=== PATIENT | female | born 1990 | race Caucasian/White ===

== ENCOUNTER → 2019-04-22 16:50 | Outpatient (CLI) | payer SELFPAY | PROVIDERS: Visit Provider Advanced Practice Midwife | DX: Z12.4 Encounter for screening for malignant neoplasm of cervix (principal); Z11.3 Encounter for screening for infections with a predominantly sexual mode of transmission ==

== ENCOUNTER → 2019-05-16 13:08 | Outpatient (CLI) | payer SELFPAY ==
[2019-05-16 13:49] LABS: Color, Urine Yellow (Yellow); Glucose, Dipstick Normal (Normal); Ketone-Dipstick Negative (Negative); Leukocyte Esterase-Dipstick 500 /ul (Negative); Nitrite-Dipstick Negative (Negative); Occult Blood-Urine Negative /ul (Negative); Protein-Dipstick Negative (Negative); Urine Bilirubin Dipstick Negative (Negative); Urine Clarity Sl. Cloudy (Clear); Urine Urobilinogen 1 mg/dl (Normal)
[2019-05-16 15:31] LABS: Absolute Lymphocyte Count 1.59 X10^3/uL (0.83-4.51); Absolute Neutrophil Count 8.9 X10^3/uL (2.0-7.7); Basophil# 0.04 X10^3/uL; Basophil% 0.3 % (0-1); Eosinophils% 0.8 % (0-5); Hematocrit 36.4 % (37-47); Hemoglobin 12.3 g/dL (12.0-15.0); Lymphocyte # 1.59 X10^3/ul (4.0); Lymphocyte % 13.2 % (19-41); Mean Corp Hgb Conc 33.8 g/dL (32-36); Mean Corpuscular Volume 85.8 fL (81-99); Mean Platelet Vol. 12.1 fl (6.2-12.0); Monocyte# 1.31 X10^3/uL; Monocyte% 10.9 % (0-10); NRBC Flagged by Analyzer 0 % (0-5); Neutrophil # 8.94 X10^3/uL (2.7-7.7); Neutrophil % 74.3 % (47-70); Platelet Count 284 K/mm3 (150-450); RBC Distribution Width CV 12.4 % (11.6-14.6); RBC Distribution Width SD 38.5 fl (35.1-43.9); Red Blood Count 4.24 M/mm3 (4.2-5.4)
[2019-05-16 15:53] LABS: Thyroid Stim Hormone (TSH) 0.06 uIU/mL (0.358-3.74)
[2019-05-17 09:17] LABS: HIV - WCH Non-Reactive (Nonreactive); Hepatitis B Surface Antigen Non-Reactive (Nonreactive); Hepatitis C Antibody Non-Reactive (Nonreactive); Rubella IgG 17.6 IU/mL
[2019-05-23 03:15] LABS: Prenatal RPR NONREACTIVE (NONREACTIVE)
== END ==
PROVIDERS: Referring Provider Obstetrics & Gynecology; Visit Provider Obstetrics & Gynecology
DX: Z34.81 Encounter for supervision of other normal pregnancy, first trimester (principal)
CPT/HCPCS: 36415; 81002; 84443; 85025; 86703; 86762; 86803; 87340

== ENCOUNTER → 2019-11-20 | Outpatient (CLI) | payer SELFPAY | END | disposition home or self-care (01) | LOC: LABSPEC 14:44 | PROVIDERS: Visit Provider Obstetrics & Gynecology | DX: Z36.85 Encounter for antenatal screening for Streptococcus B (principal) | CPT/HCPCS: 87081 ==

== ENCOUNTER 2019-12-08 23:20 | Inpatient (IN) | payer SELFPAY, OTHER ==
[2019-12-08 23:01] VITALS: BMI 30.2
[2019-12-08 23:07] VITALS: BP 137/75; PULSE 80
[2019-12-08 23:09] VITALS: PULSE 73; TEMP 37; O2SAT 96
[2019-12-09] VITALS (41 sets, daily range): BP systolic 116–147; BP diastolic 55–95; PULSE 74–208; RESP 16–18; TEMP 36.2–37.1; O2SAT 82–98
[2019-12-09 00:12] LABS: Absolute Neutrophil Count 12.5 X10^3/uL (2.0-7.7); Basophil# 0.08 X10^3/uL; Basophil% 0.5 % (0-1); Eosinophil# 0.16 X10^3/uL; Hematocrit 37.8 % (37-47); Hemoglobin 12.6 g/dL (12.0-15.0); Lymphocyte % 12.1 % (19-41); Mean Corp Hgb Conc 33.3 g/dL (32-36); Mean Platelet Vol. 11.1 fl (6.2-12.0); Monocyte# 1.46 X10^3/uL; Monocyte% 8.8 % (0-10); NRBC Flagged by Analyzer 0 % (0-5); Neutrophil # 12.49 X10^3/uL (2.7-7.7); Neutrophil % 75.2 % (47-70); Platelet Count 236 K/mm3 (150-450); RBC Distribution Width CV 14.8 % (11.6-14.6); RBC Distribution Width SD 48.4 fl (35.1-43.9); White Blood Count 16.6 K/mm3 (4.4-11.0)
--- NOTE | 2019-12-09 01:05 | HP.PCM_ITS ---
- Problem List (1) 38 weeks gestation of Status: Acute (2) Spontaneous rupture of amniotic membranes Status: Acute History Date of Admission: 12/08/19 Final SEBLE: 12/17/19 Final SEBLE Source: US <20 weeks Gestational age: 38 Weeks and 6 Days History of this : This is a 29 year-old, G [1], P [0], at 38 weeks gestational age. Allergies promethazine [From Phenergan] Adverse Reaction (Verified 12/09/19 01:42) Inflammation of vein Home Medications: Home Medications Caplet 1 tab PO DAILY 12/08/19 Smoking Status: Never smoker Alcohol: None Number of Fetus(es): 1 NST - FHR Rate Baby A Baseline: 130 Variability:: Moderate Accelerations:: 15 x 15 Decelerations:: None NST Reactive:: Yes FHR Category:: Category I Uterine Activity:: 1.5-4m History Past Pregnancies: Past Pregnancies: none Labs: Mom's Problem List Problem Status Onset Code 38 weeks gestation of Acute [id number].38 Spontaneous rupture of amniotic membranes Acute Mom's Labs & Results 12/08/19 12/08/19 12/09/19 23:55 23:55 04:40 WBC 16.6 H RBC 4.20 Hgb 12.6 Hct 37.8 MCV 90.0 MCH 30.0 MCHC 33.3 RDW Std Deviation 48.4 H RDW Coeff of Gaby 14.8 H Plt Count 236 MPV 11.1 Immature Gran % (Auto) 2.400 H Neut % (Auto) 75.2 H Lymph % (Auto) 12.1 L [place] % (Auto) 8.8 Eos % (Auto) 1.0 Baso % (Auto) 0.5 Absolute Neuts (auto) 12.5 H Absolute Lymphs (auto) 2.00 Nucleated RBC % 0 Chlam trachomat DNA PCR Pending N.gonorrhoeae DNA (PCR) Pending Blood Type A POSITIVE Antibody Screen NEGATIVE Course Did the patient receive Yes care? Labs Blood Type: A RH: POSITIVE RPR/VDRL/Syphilis Nonreactive Rubella status Immune HbSAg Negative Date Done: 05/16/19 HIV/AIDS Non-Reactive Group B Strep: Negative Current Obstetrical History Gestational Diabetes No Incompetent Cervix No Infertility No IUGR No Macrosomia No Hypertension/Pre-eclampsia No Placenta Previa/Abruption No PTL/PROM No Uterine anomaly No Oligohydramnios No Polyhydramnios No Multiple gestation No Past Medical History Asthma No Diabetes No Hypertension No Heart disease No Mitral valve prolapse No Neurologic/Seizure disorder/ No Migraines Kidney disease No Liver disease No Varicosities No Clotting disorders/Hx of DVT No Thyroid Dysfunction No Other medical diseases No Psychiatric disorders No Major trauma No Abnormal PAP smear No Sleep apnea No Mammogram in the last 2 years No Social History Marital Status: Alleged father Corey Hx Smoking No Smoking Status Never smoker How long have you used n/a substances (years)? Expected Infant Delivery Method: Spontaneous Vaginal Number of Visits: 11 Review of Systems Constitutional: Denies: Chills, Fever, Weight Change HEENT: Denies: Head Aches, Sinus Congestion, Sinus Drainage Cardiovascular: Denies: Chest Pain, Palpitations Respiratory: Denies: Cough, Shortness of breath at rest, Sputum production Gastrointestinal: Denies: Abdominal Pain, Nausea, Vomiting Genitourinary: Denies: Dysuria Musculoskeletal: Denies: Joint Pain, Joint Tenderness Skin: Denies: Rash, Wounds Neurological: Denies: Numbness, Tingling, Focal weakness Psychiatric: Denies: Anxiety, Depression, Homicidal Ideations, Suicidal Ideations Hematologic/ Lymphatic: Denies: Easy Bruising, Easy Bleeding Physical Exam Vitals: Vital Signs Temp Pulse BP Pulse Ox 97.6 F L 84 132/82 H 96 12/09/19 04:27 12/09/19 05:08 12/09/19 04:27 12/09/19 05:08 General: Alert, Oriented x3, No apparent distress HEENT: Atraumatic, Normocephalic. Negative for: Thyromegaly, Lymphadenopathy Cardiovascular: Regular rate, Regular Rhythm Lungs: Clear to auscultation Abdomen: Bowel Sounds Present, Gravid Neurological: Deep Tendon Reflexes 2+/4 and Symmetrical, Neuro grossly intact [employer]: Normal external genitalia. Negative for: Vulvar lesions Estimated gestational size: Appropriate for gestational size Presentation: Cephalic Cervix Dilation (cm): 3.5 Station: -2 Effacement (%): 70 Assessment/Plan All Active Problems 38 weeks gestation of (Acute) Spontaneous rupture of amniotic membranes (Acute) A/P: This is a 29 year-old, G [1], P [0], at 38 weeks gestational age. SROM at 2200, clear fluid SVE 3.5/70/-2 UC Q1.5-4m Plans unmedicated delivery Admit for active labor Expect
[2019-12-09 06:30] LABS: Chlamydia Trachomatis by PCR Negative (Negative); Neisserai gonorrhoeae by PCR Negative (Negative); Probe Check PASS; Sample Adequacy Control PASS; Specimen Processing Control PASS
--- NOTE | 2019-12-09 06:34 | PN.OBGYN_ITS ---
Patient Problems: Active and Suspected Problems 38 weeks gestation of (Acute) Spontaneous rupture of amniotic membranes (Acute) Subjective: Only feeling contractions every 3-4 minutes, mild with pain a 3/10. Objective: VSS. SVE 4.5/70/-2. FHR baseline 135, +accels, -decels, moderate variability. UC irritability seen, will get IUPC - Physical Exam Vitals/I&O's: Vital Signs Temp Pulse BP Pulse Ox 97.6 F L 86 123/75 H 96 12/09/19 05:59 12/09/19 06:00 12/09/19 05:59 12/09/19 06:00 Weight: 95.708 kg Body Mass Index (BMI) 30.2 Intake and Output for Last 24 Hours 12/07/19 12/08/19 12/09/19 23:59 23:59 23:59 Intake Total 500 / 500 Balance 500 / 500 General: Alert, Oriented x3, Cooperative HEENT: Atraumatic, PERRLA, EOMI, Normocephalic Neck: Supple, No JVD, Negative Carotid Bruits Lungs: Clear to auscultation, Normal air movement Cardiovascular: Regular rate, No murmurs Abdomen: Bowel Sounds Present, Soft, Non Tender Extremities: No edema, Capillary Refill Less than 3 Seconds Skin: No rashes, No breakdown Musculoskeletal: No Tenderness to Palpation of Joints or Extremities Neurological: Cranial nerves II-XII grossly intact Psych/Mental Status: Normal Affect, Appropriate Laboratory Results 12/08/19 23:55: WBC 16.6 H, RBC 4.20, Hgb 12.6, Hct 37.8, MCV 90.0, MCH 30.0, MCHC 33.3, RDW Std Deviation 48.4 H, RDW Coeff of Gaby 14.8 H, Plt Count 236, MPV 11.1, Immature Gran % (Auto) 2.400 H, Neut % (Auto) 75.2 H, Lymph % (Auto) 12.1 L, [place] % (Auto) 8.8, Eos % (Auto) 1.0, Baso % (Auto) 0.5, Absolute Neuts (auto) 12.5 H, Absolute Lymphs (auto) 2.00, Nucleated RBC % 0 12/08/19 23:55: Blood Type A POSITIVE, Antibody Screen NEGATIVE 12/09/19 04:40: Chlam trachomat DNA PCR Negative, N.gonorrhoeae DNA (PCR) Negative Current Medications Acetaminophen (Tylenol) 325 - 650 mg PO Q4H PRN PRN PRN Reason: Pain Score 1-3/10 Al Hydroxide/Mg Hydroxide (Mylanta Ii) 15 - 30 ml PO Q4H PRN PRN PRN Reason: INDIGESTION Citric Acid/Sodium Citrate (Bicitra) 30 ml PO X1 PRN PRN Reason: Section Fentanyl Citrate (Sublimaze (100mcg Ampule)) 25 - 50 mcg IV Q2H PRN PRN PRN Reason: Pain Score 4-10/10 Lactated Ringer's () 500 mls @ 999 mls/hr IV .Q31M PRN PRN Reason: Epidural Lactated Ringer's () 500 mls @ 999 mls/hr IV .Q31M PRN PRN Reason: Corrective Measures Lactated Ringer's () 1,000 mls @ 50 mls/hr IV .Q20H ESPERANZA Last Admin: 12/09/19 01:40 Dose: Not Given Documented by: Ondansetron HCl (Zofran) 4 mg IV Q4H PRN PRN PRN Reason: NAUSEA Prochlorperazine Edisylate (Compazine Iv) 10 mg IV Q6H PRN PRN PRN Reason: NAUSEA Sodium Chloride () 10 - 40 ml IV X1 PRN PRN Reason: SALINE FLUSH Medical Necessity - Tobacco Use Smoking Status: Never smoker Assessment/Plan All Active Problems 38 weeks gestation of (Acute) Spontaneous rupture of amniotic membranes (Acute) A/P: SVE 4.5/70/-2 UC irritability seen, palpating Q3-5m, will get IUPC in To start Pitocin if needed Still wishing for an unmedicated delivery Expect
--- NOTE | 2019-12-09 08:52 | PN.OBGYN_ITS ---
<Elva Jaquez - Last Filed: 12/09/19 08:52> Patient Problems: Active and Suspected Problems 38 weeks gestation of (Acute) Spontaneous rupture of amniotic membranes (Acute) Subjective: Contractions are a 6/10, but able to still tolerate them. Wants to continue to go unmedicated with no interventions. Objective: VSS. SVE /-2. UC Q2-4m. FHR 145 baseline, +accels, -decels, moderate variability. - Physical Exam Vitals/I&O's: Vital Signs Temp Pulse BP Pulse Ox 98.3 F 80 147/82 H 96 12/09/19 08:06 12/09/19 08:06 12/09/19 08:06 12/09/19 08:06 Weight: 95.708 kg Body Mass Index (BMI) 30.2 Intake and Output for Last 24 Hours 12/07/19 12/08/19 12/09/19 23:59 23:59 23:59 Intake Total 950 / 950 Balance 950 / 950 General: Alert, Oriented x3, Cooperative HEENT: Atraumatic, PERRLA, EOMI, Normocephalic Neck: Supple, No JVD, Negative Carotid Bruits Lungs: Clear to auscultation, Normal air movement Cardiovascular: Regular rate, No murmurs Abdomen: Bowel Sounds Present, Soft, Non Tender Extremities: No edema, Capillary Refill Less than 3 Seconds Skin: No rashes, No breakdown Musculoskeletal: No Tenderness to Palpation of Joints or Extremities Neurological: Cranial nerves II-XII grossly intact Psych/Mental Status: Normal Affect, Appropriate Laboratory Results 12/08/19 23:55: WBC 16.6 H, RBC 4.20, Hgb 12.6, Hct 37.8, MCV 90.0, MCH 30.0, MCHC 33.3, RDW Std Deviation 48.4 H, RDW Coeff of Gaby 14.8 H, Plt Count 236, MPV 11.1, Immature Gran % (Auto) 2.400 H, Neut % (Auto) 75.2 H, Lymph % (Auto) 12.1 L, [place] % (Auto) 8.8, Eos % (Auto) 1.0, Baso % (Auto) 0.5, Absolute Neuts (auto) 12.5 H, Absolute Lymphs (auto) 2.00, Nucleated RBC % 0 12/08/19 23:55: Blood Type A POSITIVE, Antibody Screen NEGATIVE 12/09/19 04:40: Chlam trachomat DNA PCR Negative, N.gonorrhoeae DNA (PCR) Negative Current Medications Acetaminophen (Tylenol) 325 - 650 mg PO Q4H PRN PRN PRN Reason: Pain Score 1-3/10 Al Hydroxide/Mg Hydroxide (Mylanta Ii) 15 - 30 ml PO Q4H PRN PRN PRN Reason: INDIGESTION Citric Acid/Sodium Citrate (Bicitra) 30 ml PO X1 PRN PRN Reason: Section Fentanyl Citrate (Sublimaze (100mcg Ampule)) 25 - 50 mcg IV Q2H PRN PRN PRN Reason: Pain Score 4-10/10 Lactated Ringer's () 500 mls @ 999 mls/hr IV .Q31M PRN PRN Reason: Epidural Lactated Ringer's () 500 mls @ 999 mls/hr IV .Q31M PRN PRN Reason: Corrective Measures Lactated Ringer's () 1,000 mls @ 50 mls/hr IV .Q20H [facility] Last Admin: 12/09/19 01:40 Dose: Not Given Documented by: Ondansetron HCl (Zofran) 4 mg IV Q4H PRN PRN PRN Reason: NAUSEA Prochlorperazine Edisylate (Compazine Iv) 10 mg IV Q6H PRN PRN PRN Reason: NAUSEA Sodium Chloride () 10 - 40 ml IV X1 PRN PRN Reason: SALINE FLUSH Medical Necessity - Tobacco Use Smoking Status: Never smoker Assessment/Plan All Active Problems 38 weeks gestation of (Acute) Spontaneous rupture of amniotic membranes (Acute) A/P: SVE /-2 UC irregular with IUPC in Wishes to stay unmedicated and no interventions Will allow to continue labor without Pitocin as she is now making cervical change Expect <Mandi Packer - Last Filed: 12/09/19 16:15> - Physical Exam Vitals/I&O's: Vital Signs Temp Pulse BP Pulse Ox 97.2 F L 100 121/67 H 82 12/09/19 13:36 12/09/19 16:01 12/09/19 16:01 12/09/19 14:03 Weight: 95.708 kg Body Mass Index (BMI) 30.2 Intake and Output for Last 24 Hours 12/07/19 12/08/19 12/09/19 23:59 23:59 23:59 Intake Total 1050 / 1050 Output Total 500 / 500 Balance 550 / 550 Laboratory Results 12/08/19 23:55: WBC 16.6 H, RBC 4.20, Hgb 12.6, Hct 37.8, MCV 90.0, MCH 30.0, MCHC 33.3, RDW Std Deviation 48.4 H, RDW Coeff of Gaby 14.8 H, Plt Count 236, MPV 11.1, Immature Gran % (Auto) 2.400 H, Neut % (Auto) 75.2 H, Lymph % (Auto) 12.1 L, [place] % (Auto) 8.8, Eos % (Auto) 1.0, Baso % (Auto) 0.5, Absolute Neuts (auto) 12.5 H, Absolute Lymphs (auto) 2.00, Nucleated RBC % 0 12/08/19 23:55: Blood Type A POSITIVE, Antibody Screen NEGATIVE 12/09/19 04:40: Chlam trachomat DNA PCR Negative, N.gonorrhoeae DNA (PCR) Negative Current Medications Acetaminophen (Tylenol) 1,000 mg PO Q8H PRN PRN PRN Reason: Pain Score 1-3/10 Dibucaine (Dibucaine) 1 applic TOPICAL TID PRN PRN; Protocol PRN Reason: Discomfort Hydrocortisone (Hytone) 1 applic TOPICAL TID PRN PRN; Protocol PRN Reason: Discomfort Cefazolin Sodium 2 gm/ Sodium (Chloride) 110 mls @ 150 mls/hr IV Q6 ESPERANZA Stop: 12/10/19 00:43 Ibuprofen (Motrin) 600 mg PO Q6H PRN PRN PRN Reason: Pain Score 1-3/10 Methylergonovine Maleate (Methergine) 0.2 mg IM X1 PRN PRN Reason: Excess bleeding/uterine atony Ondansetron HCl (Zofran) 4 mg IV Q4H PRN PRN PRN Reason: Nausea Oxycodone HCl (Oxyir) 5 - 10 mg PO Q4H PRN PRN PRN Reason: Pain Score 4-10/10 Polyethylene Glycol (Miralax) 17 gm PO DAILY ESPERANZA Senna/Docusate Sodium (Senokot-S, Carmen-Colace) 1 - 2 tablet PO DAILY PRN PRN PRN Reason: Constipation Simethicone (Mylicon) 80 mg PO PCHS PRN PRN Reason: Indigestion/Stomach pain Sodium Chloride () 5 - 15 ml IV UD PRN PRN Reason: SALINE FLUSH Throat Lozenges (Dermoplast (Sp)) 1 applic TOPICAL 4X/DAY PRN PRN; Protocol PRN Reason: Pain/Inflammation Assessment/Plan Agreed with plan as above.
[2019-12-09] MEDS: 0.9% Saline Lock 10 ML Syringe IV ×3 (09:31→18:32)
[2019-12-09] MEDS: Lactated Ringers 1,000 ML 200 ML IV (09:33)
[2019-12-09] MEDS: Oxytocin 30 units/NS 500 ml 30 UNITS/500 ML IV.SOLN 334 UNITS IV (14:25)
--- NOTE | 2019-12-09 14:45 | DCINST_ITS ---
<Elva Jaquez - Last Filed: 12/09/19 14:45> Additional Instructions: If you experience any of the following, contact your healthcare provider. * Bleeding that soaks a pad every hour for 2 hours * Fever 100.4 or higher * Unrelieved incision or abdominal pain * Swelling, redness, discharge or bleeding from your incision or ep isiotomy site * Your incision begins to separate * Problems urinating (including inability to urinate or burning while urinating). * Visual changes * Severe headache * Flu-like symptoms * Pain or redness in one of both of your breasts * Pain, warmth, tenderness or swelling in your legs, especially the calf area * Frequent nausea and vomiting * Symptoms of depression or anxiety If you experience any of the following, call 911 or go to the nearest Emergency Room. * Chest pain * Problems breathing * Seizure activity * Partial or complete paralysis of a body part, slurred speech, weakness or drooping of the face, or a sudden inability to walk or hold your balance Allergies/Adverse Reactions: Allergies promethazine [From Phenergan] Adverse Reaction (Verified 12/09/19 01:42) Inflammation of vein Medications to take at Discharge Caplet 1 tab PO DAILY 12/08/19 Acetaminophen [Tylenol] 650 mg PO Q6H PRN PRN tab 12/10/19 Ibuprofen [Motrin] 600 mg PO Q6H PRN PRN tab 12/10/19 Oxycodone [Oxyir] 5 mg PO Q6H PRN PRN 7 Days #12 tab 12/10/19 Polyethylene Glycol 3350 [Miralax] 17 gm PO DAILY 30 Days #120 packet 12/10/19 Senna/Docusate Sodium [Senokot-S] 1 tab PO BID 30 Days #60 tab 12/10/19 The following prescriptions were given: Polyethylene Glycol 3350 [Miralax] 17 gm PO DAILY 30 Days #120 packet Oxycodone [Oxyir] 5 mg PO Q6H PRN PRN 7 Days #12 tab PRN Reason: Pain Score 6-10/10 Senna/Docusate Sodium [Senokot-S] 1 tab PO BID 30 Days #60 tab Primary Care Physician: Care Physician,No Primary [Primary Care Provider] - Test Results: Test results from this visit will be discussed in further detail at your follow- up appointment, if applicable. <Mandi Packer - Last Filed: 12/10/19 07:45> Call your doctor if your incision/area has: Increased Pain/ Swelling, Increased Redness, Foul Smelling Discharge, Swelling at the incision site Call your doctor if you observe: Fever of 101 or Higher, Inability to urinate, Inability to have a bowel movement Additional Instructions: If you experience any of the following, contact your healthcare provider. * Bleeding that soaks a pad every hour for 2 hours * Fever 100.4 or higher * Unrelieved incision or abdominal pain * Swelling, redness, discharge or bleeding from your incision or episiotomy site * Your incision begins to separate * Problems urinating (including inability to urinate or burning while urinating). * Visual changes * Severe headache * Flu-like symptoms * Pain or redness in one of both of your breasts * Pain, warmth, tenderness or swelling in your legs, especially the calf area * Frequent nausea and vomiting * Symptoms of depression or anxiety If you experience any of the following, call 911 or go to the nearest Emergency Room. * Chest pain * Problems breathing * Seizure activity * Partial or complete paralysis of a body part, slurred speech, weakness or drooping of the face, or a sudden inability to walk or hold your balance Please Follow Up With: Mandi Packer DO When: 2 weeks in office for perineal check Test Results: Test results from this visit will be discussed in further detail at your follow- up appointment, if applicable.
--- NOTE | 2019-12-09 14:45 | PCM.OPRPT ---
Problem List (1) 38 weeks gestation of Status: Acute (2) Spontaneous rupture of amniotic membranes Status: Acute Vaginal Delivery Maternal Presentation: Active Labor Amniotic Membrane Rupture Type: Spontaneous at home Amniotic Fluid Description: Clear Final SEBLE: 12/17/19 Final SEBLE Source: US <20 weeks Gestational age: 38 Weeks and 6 Days Date of Procedure: 12/09/19 Pre-Operative Diagnosis: Labor Post-Operative Diagnosis: Surgery/ Procedure Performed: Spontaneous Vaginal Delivery Type of Anesthesia: Local with 1% lidocaine Description of Procedure: Patient was FD at +3 station with spontaneous urge to push. She pushed to deliver head in OA to TEQUILA followed spontaneously by body. Loose body nuchal x 1 reduced after delivery. The female was placed on the maternal abdomen and further attended to by nursery personnel. The cord was doubly clamped and cut by MD under CNM supervision at approximately 5 minutes of life. With gentle traction the placenta delivered. IV Pitocin started per protocol. On inspection placenta appears to have a three vessel cord. Fourth degree perineal/vaginal floor laceration repaired by attending Dr. Packer under 1% local anesthetic. Apgars 8/9. EBL 700. Sponge and needle counts correct x 2. Precipitous delivery. Attending MD: Dr. Bobby Packer Presentation: Vertex, TEQUILA Placental Delivery Description: Spontaneous Placenta Disposition: [facility] Cord Vessel Description: 3 Vessels Cord Entanglement: - - around body x 1 Estimated Blood Loss: 700 Infant A gender: Female (1 minute): 8 (5 minute): 9 Episiotomy Description: None Laceration: 4th Degree Medications given after delivery: IV Pitocin
[2019-12-09] MEDS: Cefazolin 2 GM in 0.9% Normal Saline 100 ML IV ×2 (17:42→23:33)
[2019-12-09] MEDS: Ibuprofen 600 MG Tablet PO ×2 (17:56→23:40)
[2019-12-09] MEDS: Senna/Docusate Sodium 1 Tablet PO (17:57)
--- NOTE | 2019-12-09 19:22 | PCM.OPRPT ---
Report of Operation Date of Procedure: 12/09/19 Pre-Operative Diagnosis: Morales intrauterine Post-Operative Diagnosis: Morales intrauterine . Fourth degree perineal laceration. Surgery/Procedure Performed:: Elva Jaquez performing delivery. Mandi Packer performing perineal laceration repair Description of Surgical Findings:: Fourth degree perineal laceration noted on exam with laceration through rectal mucosa. Type of Anesthesia:: Local - 1% lidocaine Estimated Blood Loss (mL): 700cc tota Vaginal Delivery Maternal Presentation: Active Labor, Spontaneous Rupture of Membranes Amniotic Membrane Rupture Type: Spontaneous at home Gestational age: 38 weeks and 6 days Date of Procedure: 12/09/19 Pre-Operative Diagnosis: Morales intrauterine Post-Operative Diagnosis: Morales intrauterine , fourth degree perineal laceration Surgery/ Procedure Performed: Spontaneous Vaginal Delivery Type of Anesthesia: Local with 1% lidocaine Presentation: Vertex Placental Delivery Description: Spontaneous Cord Vessel Description: 3 Vessels Nuchal Cord Compression: Without compression Cord Entanglement: Around neck x 1, loose Estimated Blood Loss: 700cc A gender: Female (1 minute): 8 (5 minute): 9 Laceration: 4th Degree - Fourth degree perineal laceration noted on exam, laceration through rectal mucosa. Laceration repaired in usual fashion. Rectal mucosa reapproximated. Spinchter muscles reapproximated with end to end interrupted sutures. Remaining mucosa repaired in usual fashion. Rectal exam at the end of the repair was completed, noting closure of the mucosa, no defect in repair.
[2019-12-10 03:00] VITALS: BP 110/55; PULSE 82; RESP 17; TEMP 36.1
[2019-12-10] MEDS: 0.9% Saline Lock 10 ML Syringe IV ×2 (05:53→08:08)
[2019-12-10] MEDS: Ibuprofen 600 MG Tablet PO ×3 (05:53→20:51)
--- NOTE | 2019-12-10 07:06 | PCM.PN.OB ---
<Elva Jaquez - Last Filed: 12/10/19 08:24> Patient Problems: Active and Suspected Problems 38 weeks gestation of (Acute) Spontaneous rupture of amniotic membranes (Acute) Subjective: Vaginal/rectal pain a 0/10 when laying still and a 2/10 when moving. Denies heavy bleeding. Reports already having a BM this AM. well and would like to discharge today. Objective: VSS. Fundus is firm, midline, u/2. Vaginal edema +1. Lochia rubra light to moderate. - Physical Exam Vitals/I&O's: Vital Signs Temp Pulse Resp BP Pulse Ox 97.0 F L 82 17 110/55 L 97 12/10/19 03:00 12/10/19 03:00 12/10/19 03:00 12/10/19 03:00 12/09/19 19:40 Oxygen Delivery Method Room Air Weight: 95.708 kg Body Mass Index (BMI) 30.2 Intake and Output for Last 24 Hours 12/08/19 12/09/19 12/10/19 23:59 23:59 23:59 Intake Total 3083.33 / 3083.33 110 / 110 Output Total 1000 / 1000 Balance 2083.33 / 2083.33 110 / 110 General: Alert, Oriented x3, Cooperative HEENT: Atraumatic, PERRLA, EOMI, Normocephalic Neck: Supple, No JVD, Negative Carotid Bruits Lungs: Clear to auscultation, Normal air movement Cardiovascular: Regular rate, No murmurs Abdomen: Bowel Sounds Present, Soft, Non Tender Extremities: No edema, Capillary Refill Less than 3 Seconds Skin: No rashes, No breakdown, Incision - 4th degree repair, well approximated Musculoskeletal: No Tenderness to Palpation of Joints or Extremities Neurological: Cranial nerves II-XII grossly intact Psych/Mental Status: Normal Affect, Appropriate Current Medications Acetaminophen (Tylenol) 1,000 mg PO Q8H PRN PRN PRN Reason: Pain Score 1-3/10 Metronidazole (Flagyl) 500 mg in 100 mls @ 100 mls/hr IV X1 ONE Stop: 12/10/19 08:59 Ibuprofen (Motrin) 600 mg PO Q6H PRN PRN PRN Reason: Pain Score 1-3/10 Last Admin: 12/10/19 05:53 Dose: 600 mg Documented by: Methylergonovine Maleate (Methergine) 0.2 mg IM X1 PRN PRN Reason: Excess bleeding/uterine atony Ondansetron HCl (Zofran) 4 mg IV Q4H PRN PRN PRN Reason: Nausea Oxycodone HCl (Oxyir) 5 - 10 mg PO Q4H PRN PRN PRN Reason: Pain Score 4-10/10 Polyethylene Glycol (Miralax) 17 gm PO DAILY [facility] Senna/Docusate Sodium (Senokot-S, Carmen-Colace) 1 tablet PO BID [facility] Simethicone (Mylicon) 80 mg PO PCHS PRN PRN Reason: Indigestion/Stomach pain Sodium Chloride () 5 - 15 ml IV UD PRN PRN Reason: SALINE FLUSH Last Admin: 12/10/19 05:53 Dose: 10 ml Documented by: Throat Lozenges (Dermoplast (Sp)) 1 applic TOPICAL 4X/DAY PRN PRN; Protocol PRN Reason: Pain/Inflammation Medical Necessity - Tobacco Use Smoking Status: Never smoker Assessment/Plan All Active Problems 38 weeks gestation of (Acute) Spontaneous rupture of amniotic membranes (Acute) A/P: S/P day #1 Delivery complicated with a 4th degree vaginal laceration Denies pain or heavy bleeding Reports +flatus and +bm this AM Normal involution and lochia mother Dyad stable Would like to discharge today after antibiotics are finished <Mandi Packer - Last Filed: 12/10/19 13:46> - Physical Exam Vitals/I&O's: Vital Signs Temp Pulse Resp BP Pulse Ox 97.2 F L 72 16 105/64 97 12/10/19 07:55 12/10/19 07:55 12/10/19 07:55 12/10/19 07:55 12/09/19 19:40 Oxygen Delivery Method Room Air Weight: 95.708 kg Body Mass Index (BMI) 30.2 Intake and Output for Last 24 Hours 12/08/19 12/09/19 12/10/19 23:59 23:59 23:59 Intake Total 3083.33 / 3083.33 210 / 210 Output Total 1000 / 1000 Balance 2083.33 / 2083.33 210 / 210 Laboratory Results 12/10/19 07:35: WBC 21.1 H, RBC 3.33 L, Hgb 9.9 L, Hct 29.9 L, MCV 89.8, MCH 29.7, MCHC 33.1, RDW Std Deviation 48.4 H, RDW Coeff of Gaby 14.9 H, Plt Count 229, MPV 11.0, Immature Gran % (Auto) 1.900 H, Neut % (Auto) 76.3 H, Lymph % (Auto) 11.1 L, Dundy % (Auto) 9.8, Eos % (Auto) 0.5, Baso % (Auto) 0.4, Absolute Neuts (auto) 16.1 H, Absolute Lymphs (auto) 2.34, Nucleated RBC % 0, Diff Path Review May foll Current Medications Acetaminophen (Tylenol) 1,000 mg PO Q8H PRN PRN PRN Reason: Pain Score 1-3/10 Ibuprofen (Motrin) 600 mg PO Q6H PRN PRN PRN Reason: Pain Score 1-3/10 Last Admin: 12/10/19 12:13 Dose: 600 mg Documented by: Methylergonovine Maleate (Methergine) 0.2 mg IM X1 PRN PRN Reason: Excess bleeding/uterine atony Ondansetron HCl (Zofran) 4 mg IV Q4H PRN PRN PRN Reason: Nausea Oxycodone HCl (Oxyir) 5 - 10 mg PO Q4H PRN PRN PRN Reason: Pain Score 4-10/10 Polyethylene Glycol (Miralax) 17 gm PO DAILY [facility] Last Admin: 12/10/19 10:41 Dose: 17 gm Documented by: Senna/Docusate Sodium (Senokot-S, Carmen-Colace) 1 tablet PO BID [facility] Last Admin: 12/10/19 11:44 Dose: Not Given Documented by: Simethicone (Mylicon) 80 mg PO PCHS PRN PRN Reason: Indigestion/Stomach pain Sodium Chloride () 5 - 15 ml IV UD PRN PRN Reason: SALINE FLUSH Last Admin: 12/10/19 08:08 Dose: 10 ml Documented by: Throat Lozenges (Dermoplast (Sp)) 1 applic TOPICAL 4X/DAY PRN PRN; Protocol PRN Reason: Pain/Inflammation Assessment/Plan Patient seen and examined this morning. Feeling well, pain controlled with motrin. Given ancef x2 and flagyl x1. Acute blood loss anemia secondary to delivery, pt to iron supplement at home. Leukocytosis secondary to delivery as well. PT to follow up in 2w in office with physician for perineal check.
[2019-12-10 07:47] LABS: Absolute Lymphocyte Count 2.34 X10^3/uL (0.83-4.51); Absolute Neutrophil Count 16.1 X10^3/uL (2.0-7.7); Basophil# 0.08 X10^3/uL; Basophil% 0.4 % (0-1); Eosinophils% 0.5 % (0-5); Hematocrit 29.9 % (37-47); Hemoglobin 9.9 g/dL (12.0-15.0); Lymphocyte # 2.34 X10^3/ul (4.0); Lymphocyte % 11.1 % (19-41); Mean Corp Hgb Conc 33.1 g/dL (32-36); Mean Corpuscular Hgb 29.7 pg (27.0-32.0); Mean Corpuscular Volume 89.8 fL (81-99); Monocyte# 2.07 X10^3/uL; Monocyte% 9.8 % (0-10); NRBC Flagged by Analyzer 0 % (0-5); Neutrophil # 16.07 X10^3/uL (2.7-7.7); Neutrophil % 76.3 % (47-70); POSITIVE DIFFERENTIAL YES; Platelet Count 229 K/mm3 (150-450); RBC Distribution Width CV 14.9 % (11.6-14.6); RBC Distribution Width SD 48.4 fl (35.1-43.9); Red Blood Count 3.33 M/mm3 (4.2-5.4); White Blood Count 21.1 K/mm3 (4.4-11.0)
[2019-12-10 07:50] LABS: Differential Indicated SCAN CRITERIA MET
[2019-12-10 07:55] VITALS: BP 105/64; PULSE 72; RESP 16; TEMP 36.2
[2019-12-10] MEDS: metroNIDAZOLE 500 MG/100 ML BAG 100 MG IV (08:08)
[2019-12-10] MEDS: Polyethylene Glycol 3350 17 GM PACKET PO (10:41)
[2019-12-10] MEDS: Senna/Docusate Sodium 1 Tablet PO (10:41)
[2019-12-10 14:35] VITALS: BP 102/69; PULSE 78; RESP 16; TEMP 36.3
[2019-12-10 20:50] VITALS: BP 113/71; PULSE 82; RESP 17; TEMP 36.5
[2019-12-11 02:40] VITALS: BP 111/63; PULSE 75; RESP 17; TEMP 37
--- NOTE | 2019-12-11 07:31 | PCM.PN.OB ---
Patient Problems: Active and Suspected Problems 38 weeks gestation of (Acute) Spontaneous rupture of amniotic membranes (Acute) Subjective: Objective: Pt doing well overnight, pain well controlled. - Physical Exam Vitals/I&O's: Vital Signs Temp Pulse Resp BP Pulse Ox 98.6 F 75 17 111/63 97 12/11/19 02:40 12/11/19 02:40 12/11/19 02:40 12/11/19 02:40 12/09/19 19:40 Oxygen Delivery Method Room Air Weight: 211 lb Body Mass Index (BMI) 30.2 Intake and Output for Last 24 Hours 12/09/19 12/10/19 12/11/19 23:59 23:59 23:59 Intake Total 3083.33 / 3083.33 210 / 210 Output Total 1000 / 1000 Balance 2082.33 / 2082.33 General: Alert, Oriented x3, No apparent distress HEENT: Atraumatic, PERRLA, Normocephalic Oral: Moist Mucosa Neck: Supple Abdomen: Bowel Sounds Present, Soft, Non Tender, Non-Distended, Gravid Skin: No rashes, No breakdown Psych/Mental Status: Normal Affect, Appropriate, Alert and oriented to time, place, person, mood and affect Laboratory Results 12/10/19 07:35: WBC 21.1 H, RBC 3.33 L, Hgb 9.9 L, Hct 29.9 L, MCV 89.8, MCH 29.7, MCHC 33.1, RDW Std Deviation 48.4 H, RDW Coeff of Gaby 14.9 H, Plt Count 229, MPV 11.0, Immature Gran % (Auto) 1.900 H, Neut % (Auto) 76.3 H, Lymph % (Auto) 11.1 L, Nye % (Auto) 9.8, Eos % (Auto) 0.5, Baso % (Auto) 0.4, Absolute Neuts (auto) 16.1 H, Absolute Lymphs (auto) 2.34, Nucleated RBC % 0, Diff Path Review May foll Current Medications Acetaminophen (Tylenol) 1,000 mg PO Q8H PRN PRN PRN Reason: Pain Score 1-3/10 Ibuprofen (Motrin) 600 mg PO Q6H PRN PRN PRN Reason: Pain Score 1-3/10 Last Admin: 12/10/19 20:51 Dose: 600 mg Documented by: Methylergonovine Maleate (Methergine) 0.2 mg IM X1 PRN PRN Reason: Excess bleeding/uterine atony Ondansetron HCl (Zofran) 4 mg IV Q4H PRN PRN PRN Reason: Nausea Oxycodone HCl (Oxyir) 5 - 10 mg PO Q4H PRN PRN PRN Reason: Pain Score 4-10/10 Polyethylene Glycol (Miralax) 17 gm PO DAILY [facility] Last Admin: 12/10/19 10:41 Dose: 17 gm Documented by: Senna/Docusate Sodium (Senokot-S, Carmen-Colace) 1 tablet PO BID [facility] Last Admin: 12/10/19 21:57 Dose: Not Given Documented by: Simethicone (Mylicon) 80 mg PO PCHS PRN PRN Reason: Indigestion/Stomach pain Sodium Chloride () 5 - 15 ml IV UD PRN PRN Reason: SALINE FLUSH Last Admin: 12/10/19 08:08 Dose: 10 ml Documented by: Throat Lozenges (Dermoplast (Sp)) 1 applic TOPICAL 4X/DAY PRN PRN; Protocol PRN Reason: Pain/Inflammation Medical Necessity - Tobacco Use Smoking Status: Never smoker Assessment/Plan All Active Problems 38 weeks gestation of (Acute) Spontaneous rupture of amniotic membranes (Acute) PPD#2 s/p with 4th degree laceration, doing well. Pain well controlled. Okay to d/c home
[2019-12-11 08:42] VITALS: BP 131/77; PULSE 95; RESP 14; TEMP 36.4
[2019-12-11 12:46] LABS: Pathologist Review Reviewed
== END 2019-12-11 10:35 | disposition home or self-care (01) | DRG 768 ==
LOC: WPOUT 23:25 → WP 23:25
PROVIDERS: Admitting Provider Obstetrics & Gynecology; Referring Provider Obstetrics & Gynecology; Visit Provider Obstetrics & Gynecology
DX: O42.02 Full-term premature rupture of membranes, onset of labor within 24 hours of rupture (principal); Z37.0 Single live birth; O70.3 Fourth degree perineal laceration during delivery; D62 Acute posthemorrhagic anemia; O99.13 Other diseases of the blood and blood-forming organs and certain disorders involving the immune mechanism complicating the puerperium; D72.829 Elevated white blood cell count, unspecified; O62.3 Precipitate labor; O69.81X0 Labor and delivery complicated by cord around neck, without compression, not applicable or unspecified; O90.81 Anemia of the puerperium; Z3A.38 38 weeks gestation of pregnancy
CPT/HCPCS: 59025; 59050; 85025; 86850; 86900; 86901; 87491; 87591; 99218; J7120; A4216; G0378

== ENCOUNTER → 2021-02-09 | Outpatient (CLI) | payer OTHER, SELFPAY ==
--- NOTE | 2021-02-09 | FLU_PTH ---
PATIENT: ONEYDA HARDY LOC: [facility] U#:[id number] AGE/SX: 30/F ROOM: RE02/09/[address]: YUKO See : 1990 BED: DIS: 02/09/2021 SPEC #: [id number] RECD: 02/10/21 09:58 STATUS: FRANDY REQ #: [id number] FREDDY: 02/09/21 00:[address]: Patel Rosales DEPT: CYTOLOGY RECD BY: Laura Norton ENTERED: 02/10/21 10:59 SP TYPE: Fluid OTHR DR: Trang Primary Care Phys YUKO See Tissues: A - Thyroid gland, NOS B - Thyroid gland, NOS Procedures: Special Stain Group II Surgery Specimen Level IV Cytospin Fluid Cytology Other Comments: @ Ordering doctor for SSII edited from MADHAVI to DR.DPEABO Vu by COTY at 02/10/21 1438 @ Ordering doctor for SUIV edited from MADHAVI to DR.DPEABO Vu by COTY at 02/10/21 1438 @ Ordering doctor for CYSPIN edited from MADHAVI to DR.DPEABO Vu by COTY at 02/10/21 1438 @ Ordering doctor for CYOTHER edited from MADHAVI to DR.DPEABO Vu by COTY at 02/10/21 1438 @ Submitting doctor edited from MADHAVI to DR.DPEABO Horace ANSARI at 02/10/21 1438 HEADER OPERATION: Ultrasound-guided fine needle aspiration of right thyroid PRE-OP DIAGNOSIS: Multinodular goiter TISSUE SUBMITTED: A ? FNA right thyroid fluid, B - FNA right thyroid x12 slides DIAGNOSIS CYTOLOGY A. Right thyroid nodule fluid, ultrasound-guided FNA (cytospin and cell block): Consistent with benign follicular/colloid nodule with cystic changes. B. Right thyroid nodule, ultrasound-guided FNA (smears): Consistent with benign follicular/colloid nodule with cystic changes. Adequate for evaluation. See comment. SJ:simon 02/11/2021 COMMENT Correlation with clinical, radiologic findings and appropriate follow up are necessary. CYTOLOGY STUDY Slides are reviewed. CYTOLOGY GROSS A - Received is 30 ml of light amezquita cloudy fluid labeled with the patient's name and and designated per the requisition as right thyroid. Submitted for cytology preparation including cell block. B - Received are 12 smears labeled with the patient's name and designated per the requisition as right thyroid. Submitted for staining. / simon 02/10/2021 TC:5 CPT: 55760, 45274, 59268
== END | disposition home or self-care (01) ==
LOC: LABSPEC 02-10 10:05
PROVIDERS: Referring Provider Nurse Practitioner Family; Visit Provider Nurse Practitioner Family
DX: E04.2 Nontoxic multinodular goiter (principal)
CPT/HCPCS: 88108; 88161; 88305; 88313

== ENCOUNTER → 2021-02-17 | Outpatient (CLI) | payer OTHER, SELFPAY ==
[2021-02-23 00:06] LABS: Chlamydia By Nucleic Acid AMP Negative (Negative)
[2021-02-23 12:08] LABS: Gonococcus By Nucleic Acid AMP Negative (Negative)
== END | disposition home or self-care (01) ==
PROVIDERS: Visit Provider Obstetrics & Gynecology
DX: Z11.3 Encounter for screening for infections with a predominantly sexual mode of transmission (principal)
CPT/HCPCS: 87491; 87591

== ENCOUNTER → 2021-03-24 14:30 | Outpatient (CLI) | payer OTHER, SELFPAY ==
[2021-03-24 15:07] LABS: Absolute Lymphocyte Count 1.96 X10^3/uL (0.83-4.51); Absolute Neutrophil Count 11.5 X10^3/uL (2.0-7.7); Basophil# 0.07 X10^3/uL; Basophil% 0.5 % (0-1); Eosinophil# 0.23 X10^3/uL; Eosinophils% 1.5 % (0-5); Hematocrit 38.1 % (37-47); Hemoglobin 12.9 g/dL (12.0-15.0); Lymphocyte # 1.96 X10^3/ul (0.83-4.51); Lymphocyte % 12.9 % (19-41); Mean Corp Hgb Conc 33.9 g/dL (32-36); Mean Corpuscular Hgb 28.5 pg (27.0-32.0); Mean Corpuscular Volume 84.3 fL (81-99); Mean Platelet Vol. 10.8 fl (6.2-12.0); Monocyte# 1.31 X10^3/uL; Monocyte% 8.6 % (0-10); NRBC Flagged by Analyzer 0 % (0-5); Neutrophil # 11.49 X10^3/uL (2.7-7.7); Neutrophil % 75.4 % (47-70); Platelet Count 298 K/mm3 (150-450); RBC Distribution Width CV 14.1 % (11.6-14.6); RBC Distribution Width SD 43.2 fl (35.1-43.9); Red Blood Count 4.52 M/mm3 (4.2-5.4); White Blood Count 15.2 K/mm3 (4.4-11.0)
[2021-03-24 15:20] LABS: Color, Urine Yellow (Yellow); Glucose, Dipstick Normal (Normal); Ketone-Dipstick 5 mg/dl (Negative); Leukocyte Esterase-Dipstick 25 /ul (Negative); Nitrite-Dipstick Negative (Negative); Occult Blood-Urine Negative /ul (Negative); Protein-Dipstick 15 mg/dl (Negative); Urine Bilirubin Dipstick Negative (Negative); Urine Clarity Cloudy (Clear); Urine Urobilinogen 1 mg/dl (Normal)
[2021-03-24 15:39] LABS: Thyroid Stim Hormone (TSH) 0.57 uIU/mL (0.358-3.74)
[2021-03-25 09:03] LABS: HIV - WCH Non-Reactive (Nonreactive); Hepatitis B Surface Antigen Non-Reactive (Nonreactive); Hepatitis C Antibody Non-Reactive (Nonreactive); Rubella IgG Reactive (Nonreactive); Syphilis Antibodies Non-reactive
== END ==
PROVIDERS: Visit Provider Obstetrics & Gynecology
DX: Z34.81 Encounter for supervision of other normal pregnancy, first trimester (principal)
CPT/HCPCS: 36415; 81002; 84443; 85025; 86703; 86762; 86780; 86803; 87077; 87086; 87088; 87340

== ENCOUNTER 2021-06-22 11:17 | Outpatient (CLI) | payer SELFPAY ==
[2021-06-22 13:32] LABS: Hematocrit 33.8 % (37-47); Hemoglobin 11.1 g/dL (12.0-15.0); Mean Corp Hgb Conc 32.8 g/dL (32-36); Mean Corpuscular Hgb 27.5 pg (27.0-32.0); Mean Corpuscular Volume 83.7 fL (81-99); Mean Platelet Vol. 10.5 fl (6.2-12.0); Platelet Count 278 K/mm3 (150-450); RBC Distribution Width SD 42.6 fl (35.1-43.9); Red Blood Count 4.04 M/mm3 (4.2-5.4); White Blood Count 15.4 K/mm3 (4.4-11.0)
[2021-06-22 13:39] LABS: Glucose Challenge Gest 1H 50g 92 mg/dL (70-140)
== END 2021-06-22 23:59 | disposition home or self-care (01) ==
PROVIDERS: Visit Provider Obstetrics & Gynecology
DX: Z34.83 Encounter for supervision of other normal pregnancy, third trimester (principal)
CPT/HCPCS: 36415; 82950; 85027

== ENCOUNTER → 2021-08-18 | Outpatient (CLI) | payer SELFPAY | END | disposition home or self-care (01) | LOC: LABSPEC 10:50 | PROVIDERS: Visit Provider Obstetrics & Gynecology | DX: Z36.85 Encounter for antenatal screening for Streptococcus B (principal) | CPT/HCPCS: 87081 ==

== ENCOUNTER 2021-09-10 08:20 | Inpatient (IN) | payer SELFPAY, OTHER ==
[2021-09-10] VITALS (28 sets, daily range): BP systolic 109–135; BP diastolic 55–91; PULSE 86–134; RESP 16–18; TEMP 36.2–36.8; O2SAT 92–100; BMI 35.4
[2021-09-10] MEDS: Lactated Ringers 1,000 ML 50 ML IV (08:45)
[2021-09-10 09:06] LABS: Absolute Lymphocyte Count 1.89 X10^3/uL (0.83-4.51); Basophil# 0.06 X10^3/uL; Basophil% 0.4 % (0-1); Eosinophil# 0.11 X10^3/uL; Eosinophils% 0.8 % (0-5); Hematocrit 33.7 % (37-47); Hemoglobin 10.5 g/dL (12.0-15.0); Lymphocyte # 1.89 X10^3/ul (0.83-4.51); Mean Corp Hgb Conc 31.2 g/dL (32-36); Mean Corpuscular Hgb 23.6 pg (27.0-32.0); Mean Corpuscular Volume 75.9 fL (81-99); Mean Platelet Vol. 10.1 fl (6.2-12.0); Monocyte# 1.22 X10^3/uL; NRBC Flagged by Analyzer 0 % (0-5); Neutrophil # 9.96 X10^3/uL (2.7-7.7); Neutrophil % 73.7 % (47-70); Platelet Count 233 K/mm3 (150-450); RBC Distribution Width CV 17.1 % (11.6-14.6); RBC Distribution Width SD 45.4 fl (35.1-43.9); Red Blood Count 4.44 M/mm3 (4.2-5.4); White Blood Count 13.5 K/mm3 (4.4-11.0)
[2021-09-10] MEDS: Oxytocin 30 units/NS 500 ml 30 UNITS/500 ML IV.SOLN 999 UNITS IV (11:49)
[2021-09-10] MEDS: Methylergonovine 0.2 MG/ML Ampul IM (11:52)
--- NOTE | 2021-09-10 12:08 | HP.PCM_ITS ---
History and Physical Date of Admission: 09/10/21 OG ANTEPARTUM RECORD - HISTORY AND PHYSICAL (09/10/2021) Name: LARISA HARDY History of this : This is a 30 year old [id number] presents at 39 wks + 6 days gestation in active labor. OB Physician: Dirk Alvarado MD 's Physician: PED MANAGED CARE PROVIDER ...................................................................... : 1990 Age: 30 Address: [address] [place] [address] Phone: (h) [phone] Insurance Carrier: Emergency Contact: DWIGHT - [phone] ...................................................................... Final SEBLE: 09/11/21 By Ultrasound: 10 weeks 4 days PARITY: (G-Total Pregnancies P-Fullterm,Premature,Induced AB,Spont AB, Ectopics, Multiple,Living) SEBLE CONFIRMATION: By LMP: 12/13/20 Initial Exam: 09/19/21 By First Ultrasound Exam: 09/11/21 Final SEBLE: 09/11/21 OB PROBLEM LIST: 80 lb weight gain with her first ALLERGIC TO PROMETHAZINE! 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 Job Description - Illicit Drug Use - denies use of street drugs Sexual Activity - Residence - lives with Place of - [place] Spouse-Sig Other Name - Ocrey Spouse-Sig Other Occupation - hot tar roofer helper/equestrian trainer Spouse-Sig Other Phone No - [phone] Children Name(s) - Margarita (12/09/19) PRIOR DELIVERY HISTORY DEL DATE GEST LAB WT LB WT OZ TYPE ANES LABOR TX Dec 11 [phone] Vag Local No ANTEPARTUM FLOW CHART VISIT GE RTC FU F F NH U U DATE WK MD WKS HT PN HR M SS BP ED WT NH GL D EF ST __ ____ ___ __ __ ___ __ __ __ ___ __ __ __ ___ __ August JMW 1 38 V + + 134/76 1+ 249 tr - 4+ 75 -1 August JMW 1 38 + + 134/84 sl 244 1+ - 04 August JMW 1 37 + + 136/72 0 241 tr - S Jul JMW 1 36 V + + 138/80 sl 240 tr - ft 75 PH Jun JMW 3 33 + + 136/74 sl 232 - - Jul 21 SHM 2 30 + + 136/78 sl 227 - - Jul 19 SHM 2 29 + + 114/74 sl 223 tr - 15 Jun 19 JMW 2 26 + + 140/70 0 218 tr ne May 13 JMW 4 20 B + + 124/78 0 197 tr ne Apr 07 JMW 4 15 + 132/72 0 174 1+ ne ANTEPARTUM NOTE(S): Sep 09 2021: Good FM Sep 02 2021: no concerns, Good FM Aug 25 2021: Good FM Aug 18 2021: GBS Today,LARC form signed, Good FM Jul 22 2021: Good FM Jul 09 2021: Jun 22 2021: continued muffled hearing, congestion Jun 08 2021: Good FM, no PIH sxs, BP ok on left Apr 28 2021: Comp U/S today, nausea continues. Mar 24 2021: N/V continues in AM., Declines AFP COMPREHENSIVE ANTEPARTUM NOTE(S): Sep 02 2021: Larisa is here for a pnv at 38/5. Good FM. Sl edema present in b/l ankles. Denies ctx's, back pain, and pelvic pressure. Declines cervix check at this time. MK Aug 25 2021: Larisa is 37w4d here for PNV good FM no edema. Would like cervical check. BR Aug 24 2021: H taken to OB. tkg Jul 22 2021: Larisa is 32w5d here for PNV good FM slight edema at night. Would like to know what she can do to help with energy levels. BR Jul 09 2021: Larisa is 30w6d here for PNV good FM she states slight edema in face and hands otherwise doing well. BR Jun 22 2021: Larisa is here for a pnv at 28/3. Good FM. Sl edema present in face and hands. Continues to have muffled hearing, would like to discuss this further. Pt sounds very congested. Occasional n/v if patient overdo's herself. No other concerns expressed. 1 hr GTT drawn, pt is A positive. MK Jun 22 2021: c/o hand and facial edema, muffled hearing this . Denies congestion, eye pressure, sore throat, cough. She notes throat feels raw after vomiting some times however, continues with morning emesis and some heart burn this . Denies prior head trauma or concussion. Difficulty sleeping, but snores often when sleeps both inside and outside of . BP wnl. +thyromegaly on exam, t Jun 08 2021: Larisa states that she just recently started taking vitamins d/t nausea. Did not get any sleep last night just started last night. Also states that she is having difficulty with hearing bilaterally that started over the weekend along with a numb feeling in jaw/mouth. Is having movement but unsure if it is the right amount. Recheck BP 118/68 left arm, large cuff Mar 24 2021: Larisa is here for her NOB visit following a PNV with Dr. Alvarado. She is a 30 year old with an SEBLE of 09/11/2021, current GA is 15 w 4 d. 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 Her daughter was born at [facility] by . Past history updated. Larisa plans to deliver at [facility], she does not want an epidural, or vac assisted delivery, and Feb 17 2021: ok Feb 17 2021: Larisa here for a missed menses. 30 year old female. . Pt had a pap with PCP 11/2020 was her cervix was irregular. LMP 12/13/20. Pt is also having bad nausea. Medications and allergy are up to date. CB REVIEW OF SYSTEMS: GENERAL - Denies fever, or chills SKIN - Denies rash, new skin lesions, or change in moles EYES - Denies blurred vision, or change in visual acuity EARS - Denies ear pain, or difficulty hearing NOSE - Denies nasal congestion, discharge, or bleeding MOUTH - Denies sore throat, or difficulty swallowing NECK - Denies pain or swelling RESPIRATORY - Denies shortness of breath, cough, wheezing CARDIOVASCULAR - Denies palpitations, chest pain, orthopnea, PND, peripheral edema, syncope or claudication GASTROINTESTINAL - Denies nausea, vomiting, diarrhea, constipation, Denies abdominal pain, melena and or bright red blood GENITOURINARY - Denies dysuria, frequency of urination, urgency, or hesitancy MUSCULOSKELETAL - Denies joint or muscle pain, or back pain NEUROLOGICAL - Denies localized numbness, weakness, or tingling PSYCHIATRIC - Denies depression, anxiety, substance abuse or suicide attempts ENDOCRINE - Denies heat or cold intolerance, weight loss or gain, increasing thirst HEMATO-IMMUNOLOGIC - Denies easy bruising, bleeding, oral ulcerations or recurrent infections GENETICS SCREENING: Age 35+ years: No Thalassemia: No Neural Tube Defect: Yes cousin Down Syndrome: No TORRIE-SACHS: No Sickle Cell Disease: No Hemophilia: Yes Musc. Dystrophy: No Cystic Fibrosis: No-declines screening Pierson Chorea: No Mental Retardation: No Fragile X: No Other genetic: Yes Other defects: Yes SABs/still births: No Drugs since LMP: No Comments: FOB's Aunt with mental and physical dissabilities- unknown origin INFECTION HISTORY: High risk AIDS: No High risk Hepatitis: No Exposed to TB: No Exposed to Herpes: No Rash/viral illness since LMP: No History of STD: No MENSTRUAL HISTORY: *Menses Amount/Duration: 5 daysMenses Regularity: RegularFrequency: monthly* PAST SUMMARY: PARITY: 1. Total Pregnancies............ 2 2. Full Term Pregnancies........ 1 3. Premature.................... 0 4. Abortions - Induced.......... 0 5. Abortions - Spontaneous...... 0 6. Ectopics..................... 0 7. Multiple Births.............. 0 8. Living Children.............. 1 PAST #1: Date of :.................. 12/09/19 Gestation Weeks:................ 39 Length of labor(hours):......... 14 Sex:............................ F Weight-lbs:............... 9 Weight-oz:................ 0 Type of Delivery:............... Vag Type of Anesthesia:............. Local Place of Delivery:.............. [place] Treatment of Labor?:.... No Comment: SROM, 4TH DEGREE PHYSICAL EXAMINATION General Appearence: 30 yo female in no acute distress Vital Signs: AF, VSS Heart: RRR without rubs or gallops Lungs: CTA x 2 Breasts: deferred Abdomen: gravid Pelvis: Cervix: Presentation: cephalic Station: Fetus: Size: AGA Movement: present Heart: present LAB TEST(S) ORDERED SINCE:12/15/20 03/28/2021 URINE CULTURE 03/25/2021 RUBELLA IGG 03/25/2021 L509.8000 03/25/2021 HIV - [facility] 03/25/2021 HEPATITIS C ANTIBODY 03/25/2021 HEPATITIS B SURFACE ANTIGEN 03/24/2021 URINALYSIS, ROUTINE (DIPSTICK) 03/24/2021 THYROID STIM HORMONE (TSH) 03/24/2021 T AND S-NO CHARGE W/PNP 03/24/2021 CBC W/DIFF, AUTOMATED 02/23/2021 CHLAMYDIA/GC [place] APTIMA 09/10/2021 TYPE AND SCREEN 09/10/2021 COVID 19 AG RAPID (RN COLLECT) 09/10/2021 CBC W/DIFF, AUTOMATED 08/21/2021 RULE OUT BETA STREP (GRP. B) 06/22/2021 GLUCOSE CHALLENGE GEST 1H 50G 06/22/2021 CBC-COMPLETE BLOOD CNT NO DIFF == ==== Order Observation Description Value Ref_Range A* Site == ==== COVID 19 AG RAP NOTE [facility] Labor [facility]~[address] [place], [address]~ TYPE AND SCRE AB SCREEN GEL NEGATIVE ML CBC W/DIFF, AUT NOTE [facility] CBC W/DIFF, AUT WBC 13.5 K/mm3 4.4-11.0 H ML CBC W/DIFF, AUT RBC 4.44 M/mm3 4.2-5.4 ML CBC W/DIFF, AUT HGB 10.5 g/dL 12.0-15.0 L ML CBC W/DIFF, AUT HCT 33.7 37-47 L ML CBC W/DIFF, AUT MCV 75.9 fL 81-99 L ML CBC W/DIFF, AUT MCH 23.6 pg 27.0-32.0 L ML CBC W/DIFF, AUT MCHC 31.2 g/dL 32-36 L ML CBC W/DIFF, AUT RDW CV 17.1 11.6-14.6 H ML CBC W/DIFF, AUT RDW SD 45.4 fl 35.1-43.9 H ML CBC W/DIFF, AUT PLT 233 K/mm3 150-450 ML CBC W/DIFF, AUT MPV 10.1 fl 6.2-12.0 ML CBC W/DIFF, AUT NEUT% 73.7 47-70 H ML CBC W/DIFF, AUT LY% 14.0 19-41 L ML CBC W/DIFF, AUT MONO% 9.0 0-10 ML CBC W/DIFF, AUT EO% 0.8 0-5 ML CBC W/DIFF, AUT BASO% 0.4 0-1 ML CBC W/DIFF, AUT IG% 2.100 0.0-0.9 H ML IG% - Immature Granulocytes (promyelocytes, myelocytes and metamyelocytes) > 1% indicates that a LEFT SHIFT is Present. CBC W/DIFF, AUT ABSOLUTE NEUT 10.0 X10 3/uL 2.0-7.7 H ML CBC W/DIFF, AUT ABSOLUTE LYMPH 1.89 X10 3/uL 0.83-4.51 ML CBC W/DIFF, AUT NUCLEATED RBC 0 0-5 ML RULE OUT BETA S NOTE [facility] GLUCOSE CHALLEN NOTE [facility] GLUCOSE CHALLEN GLU GEST 50G 1H 92 mg/dL 70-140 ML CBC-COMPLETE BL NOTE [facility] CBC-COMPLETE BL WBC 15.4 K/mm3 4.4-11.0 H ML CBC-COMPLETE BL RBC 4.04 M/mm3 4.2-5.4 L ML CBC-COMPLETE BL HGB 11.1 g/dL 12.0-15.0 L ML CBC-COMPLETE BL HCT 33.8 37-47 L ML CBC-COMPLETE BL MCV 83.7 fL 81-99 ML CBC-COMPLETE BL MCH 27.5 pg 27.0-32.0 ML CBC-COMPLETE BL MCHC 32.8 g/dL 32-36 ML CBC-COMPLETE BL RDW CV 14.0 11.6-14.6 ML CBC-COMPLETE BL RDW SD 42.6 fl 35.1-43.9 ML CBC-COMPLETE BL PLT 278 K/mm3 150-450 ML CBC-COMPLETE BL MPV 10.5 fl 6.2-12.0 ML URINE CULTURE NOTE [facility] HEPATITIS C ANT NOTE [facility] HEPATITIS C ANT HEPATITIS C AB Non-Reactive Nonreactive ML Non Reactive: < 0.8 Equivocal: >/= 0.8 to < 1.0 Reactive: >/= 1.0 The CDC recommends that a reactive/equivocal HCV antibody result be followed up by the HCV Nucleic Acid Amplification test ([id number]) HEPATITIS B CORAL NOTE [facility] HEPATITIS B CORAL HEP B SURF AG Non-Reactive Nonreactive ML HIV - [facility] NOTE [facility] HIV - [facility] HIV Non-Reactive Nonreactive ML L509.8000 NOTE KELLEY L509.8000 SYPHILIS ABS Non-reactive ML RUBELLA IGG NOTE [facility] RUBELLA IGG RUBELLA IGG Reactive Nonreactive ML Antibody Results Interpretation of Immune Status Non Reactive Presumed Non-Immune Equivocal Equivocal Reactive Presumed Immune PN N [facility]~[address] [place], [address]~ T AND AB SCREEN GEL NEGATIVE ML THYROID STIM HO NOTE [facility] THYROID STIM HO TSH 0.57 uIU/mL 0.358-3.74 ML URINALYSIS, ROU NOTE [facility] URINALYSIS, ROU COLOR Yellow Yellow ML URINALYSIS, ROU URINE CLARITY Cloudy Clear ML URINALYSIS, ROU GLUCOSE, UR Normal mg/dl Normal ML URINALYSIS, ROU BILIRUBIN URINE Negative mg/dL Negative ML URINALYSIS, ROU KETONE UR 5 mg/dl Negative A ML URINALYSIS, ROU SP.GR. DIPSTX 1.030 1.002-1.030 ML URINALYSIS, ROU PH UR 5.0 5.0 - 8.0 ML URINALYSIS, ROU PROT DIPSTX 15 mg/dl Negative A ML URINALYSIS, ROU UROBILI 1 mg/dl Normal A ML URINALYSIS, ROU NITRITE Negative Negative ML URINALYSIS, ROU OCCULT BLOOD-UR Negative /ul Negative ML URINALYSIS, ROU LEUK ESTERASE 25 /ul Negative A ML CBC W/DIFF, AUT NOTE [facility] CBC W/DIFF, AUT WBC 15.2 K/mm3 4.4-11.0 H ML CBC W/DIFF, AUT RBC 4.52 M/mm3 4.2-5.4 ML CBC W/DIFF, AUT HGB 12.9 g/dL 12.0-15.0 ML CBC W/DIFF, AUT HCT 38.1 37-47 ML CBC W/DIFF, AUT MCV 84.3 fL 81-99 ML CBC W/DIFF, AUT MCH 28.5 pg 27.0-32.0 ML CBC W/DIFF, AUT MCHC 33.9 g/dL 32-36 ML CBC W/DIFF, AUT RDW CV 14.1 11.6-14.6 ML CBC W/DIFF, AUT RDW SD 43.2 fl 35.1-43.9 ML CBC W/DIFF, AUT PLT 298 K/mm3 150-450 ML CBC W/DIFF, AUT MPV 10.8 fl 6.2-12.0 ML CBC W/DIFF, AUT NEUT% 75.4 47-70 H ML CBC W/DIFF, AUT LY% 12.9 19-41 L ML CBC W/DIFF, AUT MONO% 8.6 0-10 ML CBC W/DIFF, AUT EO% 1.5 0-5 ML CBC W/DIFF, AUT BASO% 0.5 0-1 ML CBC W/DIFF, AUT IG% 1.100 0.0-0.9 H ML IG% - Immature Granulocytes (promyelocytes, myelocytes and metamyelocytes) > 1% indicates that a LEFT SHIFT is Present. CBC W/DIFF, AUT ABSOLUTE NEUT 11.5 X10 3/uL 2.0-7.7 H ML CBC W/DIFF, AUT ABSOLUTE LYMPH 1.96 X10 3/uL 0.83-4.51 ML CBC W/DIFF, AUT NUCLEATED RBC 0 0-5 ML CHLAMYDIA/GC NA NOTE [facility] CHLAMYDIA/GC NA CHLAMY,NUC ACID Negative Negative [facility]CI CHLAMYDIA/GC NA GC BY NUC ACID Negative Negative LCI Performed at: =[facility] [id number] Pulp Grinder Feeder: Joslyn Saba MD, Phone: [phone] *Negative results from patients with symptom onset beyond five days should be treated as presumptive and confirmed by a molecular assay if clinically necessary. Negative results should not be used as the sole basis for treatment or for patient management. SARS-CoV-2 Ag Resp Ql IA.rapid *Positive results do not differentiate between SARS-CoV and SARS-CoV-2. If differentiation of the specific SARS virus is desired an additional sample and an additional order is required. SARS-CoV-2 Ag Resp Ql IA.rapid * This test has not been FDA cleared or approved; the test has been authorized by FDA under an Emergency Use Authorization (EAU) for use by laboratories certified under CLIA that meet the requirements to perform moderate, high, or waived complexity tests. SARS-CoV-2 Ag Resp Ql IA.rapid Normal Reference Range: Negative SARS-CoV-2 (COVID 19) Negative RAPID METHOD Quidel Rebecca Analyzer KASSANDRA A POSITIVE Group B Beta Streptococcus is not isolated. #1 @IF STERILE BODY SITE REPORT THIS TOP COMMENT Susceptibility not normally performed on this organism. Bacteria identified Bacteria identified Actinomyces odontolyticus Roy Count 25,000-50,000 Presumptive C albicans Roy Count <1000 A POSITIVE == ==== Impression /Plan: 39 wks + 6 days intrauterine in active labor. Preparations in progress for delivery.
--- NOTE | 2021-09-10 12:08 | EX.PCM.OBRPT ---
Maternal Data Information [place] Doctor Who Attended Delivery: BlaireDouglas Vaginal Delivery Maternal Presentation Maternal Presentation: Active Labor Operative Information Date of Procedure: 09/10/21 Pre-Operative Diagnosis: IUP Post-Operative Diagnosis: IUP Surgery / Procedure Performed: Spontaneous Vaginal Delivery Type of Anesthesia: None Estimated Blood Loss: 400cc Fluids Replaced: crystalloid Findings Description of Procedure: Spontaneous vaginal delivery of a viable female with Apgars of 8/9 from an occiput anterior presentation with moderately stained meconium amniotic fluid and normal meconium stained three-vessel placenta. No episiotomy. First-degree midline laceration repaired with 3-0 repeat suture. Sponges okay. Delivery physician: Dirk Alvarado MD. Presentation: Vertex Amniotic Membrane Rupture Type: Spontaneous Amniotic Fluid Description: Moderate meconium Placental Delivery Description: Spontaneous Placenta Disposition: [facility] Cord Vessel Description: 3 Vessels Cord Entanglement: None A Gender: Female (1 minute): 8 (5 minute): 9
--- NOTE | 2021-09-10 15:12 | NURSING ---
Report received from Lesa DESAI, taking over pt and care at this time.
[2021-09-11] VITALS (14 sets, daily range): BP systolic 123–150; BP diastolic 61–78; PULSE 83–123; RESP 14–18; TEMP 36.1–36.6; O2SAT 97–100
--- NOTE | 2021-09-11 08:11 | PCM.PN.OB ---
Subjective Subjective Patient without complaints. Breast-feeding going well. Wants to stay until tomorrow. Objective Data Objective Data Vital Signs: Vital Signs Temp Pulse Resp BP Pulse Ox 97.9 F 86 14 123/61 H 97 09/11/21 04:33 09/11/21 04:33 09/11/21 04:33 09/11/21 04:33 09/10/21 21:30 Oxygen Delivery Method Room Air Weight: 247 lb 2.211 oz Body Mass Index (BMI) 35.4 Intake & Output: Intake and Output for Last 24 Hours 09/09/21 09/10/21 09/11/21 23:59 23:59 23:59 Intake Total 653.33 / 653.33 Output Total 1700 / 1700 Balance -1046.67 / -1046.67 Lab / Micro Data Result Diagrams: 09/10/21 08:45 Labs: Laboratory Results - last 24 hr 09/10/21 08:45: WBC 13.5 H, RBC 4.44, Hgb 10.5 L, Hct 33.7 L, MCV 75.9 L, MCH 23.6 L, MCHC 31.2 L, RDW Std Deviation 45.4 H, RDW Coeff of Gaby 17.1 H, Plt Count 233, MPV 10.1, Immature Gran % (Auto) 2.100 H, Neut % (Auto) 73.7 H, Lymph % (Auto) 14.0 L, Mobile % (Auto) 9.0, Eos % (Auto) 0.8, Baso % (Auto) 0.4, Absolute Neuts (auto) 10.0 H, Absolute Lymphs (auto) 1.89, Nucleated RBC % 0 09/10/21 08:45: Blood Type A POSITIVE, Antibody Screen NEGATIVE Micro: Microbiology 09/10/21 10:15 Nasal Secretion SARS-CoV-2 Antigen (Rapid) - Final Assessment & Plan (1) Spontaneous vaginal delivery: PLAN: Doing well day #1 status post routine spontaneous vaginal delivery. Continuing present care.
[2021-09-11] MEDS: Senna/Docusate Sodium 1 Tablet PO (15:38)
[2021-09-12 02:42] VITALS: BP 122/58; BP 122/68; PULSE 88; RESP 18
[2021-09-12] MEDS: Acetaminophen 500 MG Tablet 1000 MG PO ×2 (02:47→09:50)
[2021-09-12 08:00] VITALS: BP 141/64; PULSE 91; RESP 16; TEMP 36.5; O2SAT 97
[2021-09-12 08:33] VITALS: BP 141/64; PULSE 84; O2SAT 97
--- NOTE | 2021-09-12 18:12 | PCM.PN.OB ---
Subjective Subjective Pt without complaints. going well. Wants to go home today. Objective Data Objective Data Vital Signs: Vital Signs Temp Pulse Resp BP Pulse Ox 97.7 F L 84 16 141/64 H 97 09/12/21 08:00 09/12/21 08:33 09/12/21 08:00 09/12/21 08:33 09/12/21 08:33 Oxygen Delivery Method Room Air Weight: 247 lb 2.211 oz Body Mass Index (BMI) 35.4 Intake & Output: Intake and Output for Last 24 Hours 09/10/21 09/11/21 09/12/21 23:59 23:59 23:59 Intake Total 653.33 / 653.33 200 / 200 Output Total 1700 / 1700 Balance -1046.67 / -1046.67 200 / 200 Lab / Micro Data Result Diagrams: 09/10/21 08:45 Micro: Microbiology 09/10/21 10:15 Nasal Secretion SARS-CoV-2 Antigen (Rapid) - Final Assessment & Plan (1) Spontaneous vaginal delivery: PLAN: Doing well PPD no 2. Will discharge to home with routine instructions.
--- NOTE | 2021-09-12 18:14 | DCINST_ITS ---
Discharge Instructions Activity May resume sexual activity in: 4-6 weeks Additional Activity Instructions:: Nothing in the vagina for 4-6 weeks. You may return to work/school in 6 weeks. Follow Up Care Please Follow Up With: Dirk Alvarado MD When: Call [phone] to make an appointment with your doctor in 6weeks. If you had elevated blood pressure or 4th degree laceration, you will need to be seen in 2 weeks. Test Results: Test results from this visit will be discussed in further detail at your follow-up appointment, if applicable. Discharge Plan Admission Admit Date/Time: 09/10/21 08:20 Primary Reason for Your Visit: Vaginal Delivery Attending Provider: Dirk Alvarado Primary Care Provider: Callie Juan Instructions Patient Instructions: After a Vaginal Discharge Orders/Prescriptions Prescriptions: No Action 1 tab PO/SL DAILY RF: 0 Referrals / Follow Up: Callie Juan, [employer] [Primary Care Provider] - Disposition Disposition (needs filled in before D/C Order can be placed): Home, Self Care
== END 2021-09-12 11:00 | disposition home or self-care (01) | DRG 807 ==
PROVIDERS: Admitting Provider Obstetrics & Gynecology; PCP Nurse Practitioner Family; Visit Provider Obstetrics & Gynecology
DX: O42.92 Full-term premature rupture of membranes, unspecified as to length of time between rupture and onset of labor (principal); Z37.0 Single live birth; O70.0 First degree perineal laceration during delivery; O77.0 Labor and delivery complicated by meconium in amniotic fluid; Z3A.39 39 weeks gestation of pregnancy
CPT/HCPCS: 59050; 85025; 86850; 86900; 86901; 87426; 99218; J7120; G0378

== ENCOUNTER → 2021-09-22 | Outpatient (CLI) | payer SELFPAY ==
--- NOTE | 2021-09-22 15:22 | VDLE_ITS ---
Reason For Study: Pain Procedure LEFT This is a venous duplex using B-mode, color CFV is compressible, spontaneous, phasic, flow and spectral Doppler. competent, and demonstrates normal Exam performed in department. augmentation. A preliminary report was called and/or faxed FV is compressible, spontaneous, phasic, to Callie. competent and demonstrates normal augmentation. POP V is compressible, spontaneous, phasic, competent and demonstrates normal augmentation. T/P Trunk is compressible. PTV is compressible. LT PerV is compressible. Acute uperficial vein thrombosis is noted in the left GSV mid thigh to ankle, and SSV. Thrombused filled varicose veins noted in the left distal thigh and proximal calf. VL/Venous Duplex US, Unilateral Interpretation Summary There is no evidence of left lower extremity deep vein thrombosis. Acute superf icial thrombophlebitis left great saphenous, small saphenous, and distal left thigh/p roximal calf varicosities. Ordering Physician: Callie Juan Referring Physician: Callie Juan Performed By: Renea Love RVT
== END | disposition home or self-care (01) ==
PROVIDERS: PCP Nurse Practitioner Family; Referring Provider Nurse Practitioner Family; Visit Provider Nurse Practitioner Family
DX: I80.02 Phlebitis and thrombophlebitis of superficial vessels of left lower extremity (principal)
CPT/HCPCS: 93971

== ENCOUNTER → 2022-12-13 | Outpatient (CLI) | payer SELFPAY ==
--- NOTE | 2022-12-13 | FLU_PTH ---
PATIENT: ONEYDA HARDY LOC: [facility] U#:[id number] AGE/SX: 32/F ROOM: RE12/13/[address]: Dr. Patel Rosales MD : 1990 BED: DIS: 12/13/2022 SPEC #: [id number] RECD: 12/13/22 13:16 STATUS: FRANDY ALEXIA #: [id number] FREDDY: 12/13/22 00:[address]: Patel Rosales DEPT: CYTOLOGY RECD BY: Laura Norton ENTERED: 12/14/22 09:15 SP TYPE: Fluid OTHR DR: Callie Juan, [employer] Tissues: A - Thyroid gland, NOS B - Thyroid gland, NOS Procedures: Special Stain Group II Surgery Specimen Level IV Cytospin Fluid Cytology Other HEADER OPERATION: Ultrasound guided fine needle aspiration of right thyroid PRE-OP DIAGNOSIS: Abnormal ultrasound TISSUE SUBMITTED: A. US guided FNA of right thyroid fluid, B. US guided FNA of right thyroid slides DIAGNOSIS CYTOLOGY A. US guided FNA of right thyroid fluid (cytospin & cell block): Consistent with benign follicular/colloid nodule with cystic changes (Gilman Category II). Adequate for evaluation. See comment. B. US guided FNA of right thyroid (smears): Consistent with benign follicular/colloid nodule with cystic changes (Gilman Category II). Adequate for evaluation. See comment. SJ: 12/15/2022 COMMENT Immediate cytologic evaluation to determine adequacy is not applicable. Correlation with clinical, radiologic findings and appropriate follow up are necessary. The Gilman System for thyroid diagnostic categorization was used in the evaluation of this case. CYTOLOGY STUDY Slides are reviewed. CYTOLOGY GROSS A. Received is 30 ml of brown cloudy fluid labeled with the patient's name and and designated per the requisition as FNA right thyroid. Submitted for cytology preparation including cell block. B. Received are 12 smears labeled with the patient's name and designated per the requisition as FNA right thyroid. Submitted for staining. /WILFRED:guido 12/14/22 TC:5 CPT:01271, 83161
== END | disposition home or self-care (01) ==
LOC: LABSPEC 13:26
PROVIDERS: PCP Nurse Practitioner Family; Referring Provider Surgery; Visit Provider Surgery
DX: D34 Benign neoplasm of thyroid gland (principal)
CPT/HCPCS: 88108; 88161; 88305; 88313

== ENCOUNTER → 2025-04-07 | Outpatient (CLI) | payer SELFPAY ==
--- NOTE | 2025-04-07 08:20 | CT_ITS ---
PROCEDURE: SOFT TISSUE NECK WITH CONTRAST 04/07/2025 REASON FOR EXAM: Clinical history of thyroid nodule TECHNIQUE: Procedure Code: CTNEW Modality: CT Procedure: SOFT TISSUE NECK WITH CONTRAST CONTRAST: Isovue 370 VOLUME: 94 mL One or more dose reduction techniques were used (e.g., Automated exposure control, adjustment of the mA and/or kV according to patient size, use of iterative reconstruction technique). RADIATION DOSE SUMMARY: DLP: 441.23 mGycm COMPARISON: None available. FINDINGS: Aerodigestive tract: The floor of mouth, base of tongue, nasopharynx, oropharynx, hypopharynx, and larynx appear overall symmetric without evidence of nodular or masslike enhancement. The visualized trachea is clear. The nasal cavity is unobstructed. Salivary glands: (Major): The submandibular glands and parotid glands appear within normal limits. Thyroid gland: There is a 2.0 x 2.1 x 3.2 cm right heterogeneous thyroid nodule with central areas of nonenhancement and patchy areas of enhancement. There is a punctate calcification at the periphery. There is no extension to the mediastinum or retrosternal region. Asymmetrically enlarged right thyroid gland. Multiple subcentimeter hypoattenuating left thyroid nodules. Lymph nodes: There is no evidence of pathologic cervical lymphadenopathy. Vasculature: The common carotid, cervical internal carotid, and cervical vertebral arteries opacify with intravenously administered contrast. Paranasal sinuses: The paranasal sinuses are predominantly clear. Orbits: Unremarkable. Intracranial/cranium: The partially visualized intracranial contents appear overall within normal limits for the patient's stated age, although assessment is limited due to technique (e.g. the [id number]). Cervical spine: Unremarkable. Lung apices: The visualized lung apices are predominantly clear. CT/Soft Tissue Neck WITH Contrast IMPRESSION: 1. 2.0 x 2.1 x 3.2 cm heterogeneous right thyroid nodule. Consider ultrasound of the thyroid for further characterization if not already evaluated. 2. No evidence of pathologic cervical lymphadenopathy. Reading Location: [id number]
== END | disposition home or self-care (01) ==
PROVIDERS: PCP Nurse Practitioner Family; Referring Provider Nurse Practitioner Family; Visit Provider Nurse Practitioner Family
DX: E04.9 Nontoxic goiter, unspecified (principal)
CPT/HCPCS: 70491; Q9967